=== PATIENT | male | born 1990 | race Caucasian/White ===

== ENCOUNTER 2017-06-14 17:10 | Emergency (ER) | payer OTHER ==
[2017-06-14 17:17] VITALS: RESP 18
--- NOTE | 2017-06-14 17:22 | EDPHY ---
H & P Smoking Status: Never smoked Time Seen by Provider: 06/14/17 17:13 HPI/ROS: CHIEF COMPLAINT: Right shoulder injury HISTORY OF PRESENT ILLNESS: 26-year-old male presents to the emergency department by ambulance with right shoulder injury. The patient was snowboarding at [place] and caught an edge and fell. He is right-hand dominant. Complains of isolated pain to the right shoulder. Has pain especially with range of motion. He denies hitting his head or losing consciousness. Denies neck or back pain. Denies chest pain or difficulty breathing. Denies numbness or tingling in his fingers, pain in his right elbow or wrist. Denies injury to the lower extremities. [place] REVIEW OF SYSTEMS: Constitutional: No fever, no chills. Eyes: No double or blurry vision. ENT: No sore throat. Respiratory: No cough, no shortness of breath. Cardiac: No chest pain. Gastrointestinal: No abdominal pain, vomiting or diarrhea. Genitourinary: No dysuria. Musculoskeletal: No neck or back pain. Skin: No rashes. Neurological: No headache. (AshwiniGauri fuller) Past Medical/Surgical History: Negative (AshwiniGauri fuller) Social History: Works as an engineering manager electronics (AshwiniGauri fuller) Physical Exam: General Appearance: Alert, no distress. No visible signs of trauma to his head. He is mentating normally and answering questions appropriately. Eyes: Pupils equal and round. Extraocular motions are all intact. ENT: Mouth: Mucous membranes moist. Respiratory: No wheezing, rhonchi, or rales, lungs are clear to auscultation. Cardiovascular: Regular rate and rhythm. Gastrointestinal: Abdomen is soft and nontender, no masses, no rebound or guarding, bowel sounds normal. Neurological: Alert and oriented x 3, cranial nerves II through XII grossly intact Skin: Warm and dry, no rashes. Musculoskeletal: Tenderness with palpation over the right AC joint. There is obvious deformity noted. No evidence of obvious shoulder dislocation however. No anterior fullness. Limited range of motion of the right shoulder secondary to pain. Nontender to palpate the right elbow or right wrist. Extremities: Full range of motion and no peripheral edema. Psychiatric: Patient is oriented X 3, there is no agitation. (Gauri Giordano) Constitutional: Initial Vital Signs Temperature (C) 37.0 C 06/14/17 17:14 Heart Rate 93 06/14/17 17:14 Respiratory Rate 18 06/14/17 17:14 Blood Pressure 160/106 H 06/14/17 17:14 O2 Sat (%) 97 06/14/17 17:14 O2 Delivery Mode Room Air Allergies/Adverse Reactions: No Known Allergies Allergy (Unverified 06/14/17 17:14) Home Medications: Medication Instructions Recorded NK [No Known Home Meds] 06/14/17 Medical Decision Making - Diagnostics Imaging: I viewed and interpreted images myself - Diagnostics Imaging Results: Imaging Impressions Shoulder X-Ray 06/14/17 17:20 Impression: Acromioclavicular separation, possibly type II or III. Procedures: Patient was placed in a sling and examined post application in good placement with normal DIE WELDER. (Gauri Giordano) ED Course/Re-evaluation: 26-year-old male presents to the emergency department with right shoulder injury. X-rays reveal acromioclavicular separation. He was placed in a sling and given orthopedic referral. The [place] is from out of [place] was given copies of his x-rays and told to follow up with orthopedic surgeon within 1 week. The patient also had an abnormal EKG by EMS. This was repeated in the emergency department. The patient was found to have a right bundle branch block. Patient has no pain in his chest or difficulty breathing. He otherwise has no complaints. He was encouraged to have close follow-up with his primary care provider and/or aerographer. He said that he would follow up when he gets home tomorrow. (Gauri Giordano) Differential Diagnosis: Including but not limited to fracture, dislocation, contusion, sprain, separation (Gauri Giordano) Departure - Departure Disposition: Home, Routine, Self-Care Clinical Impression: Separation of acromioclavicular joint Qualifiers: Encounter type: initial encounter Laterality: right Qualified Code(s): S43.101A - Unspecified dislocation of right acromioclavicular joint, initial encounter Condition: Good Instructions: Acromioclavicular Separation (ED) Additional Instructions: Keep sling on until follow-up with orthopedic surgeon later this week or early the following week. Ibuprofen 600 mg every 8 hr as needed for pain. You have findings of a right bundle branch block on EKG today in the emergency department. Please follow up with aerographer and her primary care provider to further evaluate this. Referrals: Mark Latham MD [Medical Doctor] - 5-7 days, call for appt. (Orthopedic surgeon on-call)
--- NOTE | 2017-06-14 18:07 | CPEKG ---
Heart Rate: 83 RR Interval: 723 P-R Interval: 156 QRSD Interval: 152 QT Interval: 428 QTC Interval: 503 P Coy: 56 QRS Coy: 61 T Wave Coy: 28 EKG Severity - ABNORMAL ECG - EKG Impression: SINUS RHYTHM EKG Impression: RBBB AND LPFB Electronically Signed By: Fermin Arteaga 14-Jun-2017 20:03:24
[2017-06-14 18:12] VITALS: BP 115/87; PULSE 75; TEMP 98.1; O2SAT 98
== END 2017-06-14 18:12 | disposition home or self-care (01) ==
DX: S43.101A Unspecified dislocation of right acromioclavicular joint, initial encounter (principal); V00.311A Fall from snowboard, initial encounter; Y92.89 Other specified places as the place of occurrence of the external cause; Y93.23 Activity, snow (alpine) (downhill) skiing, snowboarding, sledding, tobogganing and snow tubing